=== PATIENT | male | born 1975 | race Two or more races ===

== ENCOUNTER 2018-12-09 22:22 | Emergency (ER) | payer SELFPAY ==
[2018-12-09 22:28] VITALS: O2SAT 97
[2018-12-09] MEDS ORDERED: Lidocaine 2% w Epi 1:100,000 Inj IJ ONE (22:59)
[2018-12-09] MEDS ORDERED: Povidone Iodine Topical 10% Sol ONE (23:01)
[2018-12-09] MEDS ORDERED: Tdap Vaccine 0.5 ml Vial (10-64 yrs) IM ONE (23:28)
--- NOTE | 2018-12-10 | ED PDOC ---
HPI: Psych/Substance Abuse Time Seen by Provider: 12/09/18 22:52 Chief Complaint (Nursing): Abnormal Skin Integrity Chief Complaint (Provider): Alcohol Intoxication and Head Injury ED Caveat: Intoxicated History Per: Patient, EMS History/Exam Limitations: intoxication Onset/Duration Of Symptoms: Unknown Current Symptoms Are (Timing): Still Present Modifying Factor(s): Alcohol Additional Complaint(s): 43 y/o male with no significant PMHx brought in by EMS for evaluation of a head injury and alcohol intoxication. Mechanism at this time is unclear. Patient unable to provide reliable history due to intoxicated state. Patient admits to drinking alcohol today. PMD: Past Medical History Reviewed: Historical Data, Nursing Documentation, Vital Signs Vital Signs: Last Vital Signs Temp 97.3 F L 12/09/18 22:26 Pulse 98 H 12/09/18 22:26 Resp 16 12/09/18 22:26 BP 140/89 12/09/18 22:26 Pulse Ox 97 12/09/18 22:26 - Medical History PMH: No Chronic Diseases - Surgical History Surgical History: No Surg Hx - Family History Family History: States: Unknown Family Hx - Social History Current smoker - smoking cessation education provided: Yes Alcohol: > 2 Drinks/Day Drugs: Denies - Allergies Allergies/Adverse Reactions: Allergies Allergy/AdvReac Type Severity Reaction Status Date / Time No Known Allergies Allergy Verified 12/09/18 22:28 Review of Systems Review Of Systems: ROS cannot be obtained secondary to pt's inabilty to answer questions. Physical Exam - Reviewed Nursing Documentation Reviewed: Yes Vital Signs Reviewed: Yes - Physical Exam Appears: Positive for: In Acute Distress (as well as malodorous and disheveled) Head Exam: Negative for: NORMAL INSPECTION (6 cm vertical laceration at the left forehead extending up into his hairline, gaping at 0.5 cm, constant oozing but stops with pressure, hematoma additionally noted) Skin: Positive for: Warm, Dry Eye Exam: Positive for: EOMI, PERRL, Conjunctival injection ENT: Positive for: Other (tachy mucous membrane) Neck: Positive for: Painless ROM, Supple Cardiovascular/Chest: Positive for: Regular Rate, Rhythm. Negative for: Murmur Respiratory: Positive for: Normal Breath Sounds. Negative for: Respiratory Distress Gastrointestinal/Abdominal: Positive for: Soft. Negative for: Tenderness Back: Positive for: Normal Inspection. Negative for: Decreased ROM Extremity: Positive for: Normal ROM. Negative for: Deformity Lymphatic: Negative for: Adenopathy Neurological/Psych: Positive for: Lethargic, Other (slurred speech, poor concentration, poor thought process, ). Negative for: Motor/Sensory Deficits - ECG O2 Sat by Pulse Oximetry: 97 (RA) Pulse Ox Interpretation: Normal Medical Decision Making Medical Decision Making: Time: 2327 Impression: Head Injury, facial laceration and alcohol intoxication Differentials include but not limited to traumatic brain injury Plan: -- CT Cervical Spine w/o Contrast -- CT Head w/o Contrast -- Adacel (10-64 yrs) 0.5 ml IM -- Glucose, POC -- Laceration Repair. Patient tolerated procedure well. Time: 0000 -- Patient endorsed to Dr. Darnell, pending CT Head, sobriety and final ER disposition. Scribe Attestation: Documented by Joaquin Gibson, acting as a scribe Rios Laura MD. Provider Scribe Attestation: All medical record entries made by the Scribe were at my direction and personally dictated by me. I have reviewed the chart and agree that the record accurately reflects my personal performance of the history, physical exam, medical decision making, and the department course for this patient. I have also personally directed, reviewed, and agree with the discharge instructions and disposition. Procedures - Laceration/Wound Repair Left Upper Face Wound Length (cm): 6 Wound Explored: galeaa intact Irrigated w/ Saline (ccs): 250 Betadine Prep?: Yes Volume Anesthetic (ccs): 12 (2% lidocaine with epinephrine) Wound Repaired With: Sutures Suture Size/Type: 4:0 Number of Sutures: 12 Wound Complexity: Intermediate Disposition - Clinical Impression Clinical Impression: Alcohol abuse, Head injury, Laceration - Patient ED Disposition Is Patient to be Admitted: Transfer of Care Counseled Patient/Family Regarding: Studies Performed, Diagnosis - Disposition Disposition: Transfer of Care Disposition Time: 00:00 Condition: GOOD Additional Instructions: Return for suture renewal in 7 days. RANDI DONOVAN, thank you for letting us take care of you today. Your provider was Mirna Darnell MD and you were treated for ETOH; HEAD INJURY. The emergency medical care you received today was directed at your acute symptoms. If you were prescribed any medication, please fill it and take as directed. It may take several days for your symptoms to resolve. Return to the Emergency Department if your symptoms worsen, do not improve, or if you have any other problems. Please contact your doctor or call one of the physicians/clinics you have been referred to that are listed on the Patient Visit Information form that is included in your discharge packet. Bring any paperwork you were given at discharge with you along with any medications you are taking to your follow up visit. Our treatment cannot replace ongoing medical care by a primary care provider outside of the emergency department. Thank you for allowing the [facility] team to be part of your care today. If you had an X-Ray or CT scan: A Radiologist will review the ED reading if any change in treatment is needed we will contact you. Instructions: Closed Head Injury, Laceration Repair With Stitches (DC), Effects of Alcohol on Your Health Print Language: MOLDOVAN Patient Signed Over To: Mirna Darnell Handoff Comments: pending CT Head, sobriety and final ER dispostion.
--- NOTE | 2018-12-10 00:25 | ED PDOC ---
- ECG O2 Sat by Pulse Oximetry: 97 (RA) Pulse Ox Interpretation: Normal - Progress Re-evaluation Time: 06:50 Condition: Re-examined, Improved Medical Decision Making Medical Decision Making: Time: 0000 -- Patient endorsed to me by Dr. Laura, pending CT head, sobriety and final ER disposition. Time: 1217 CT SCAN OF THE BRAIN WITHOUT IV CONTRAST CLINICAL INDICATION: Trauma, laceration of forehead. TECHNIQUE: Axial and reformatted sagittal and coronal images of the brain obtained without IV contrast administration. Normal size of the ventricles and extra-axial spaces for the patient's age. Normal white matter tracts of the supratentorial brain. Normal basal ganglia and thalami. Normal brainstem. Normal cerebellum. There is no demonstrated extra-axial, intraparenchymal, or intraventricular hemorrhage. There are no findings of an acute ischemic infarction. Normal calvarium. There is no demonstrated fracture. Left frontal subgaleal soft tissue hematoma. Normal visualized paranasal sinuses. IMPRESSION: Normal unenhanced CT scan of the brain. Left frontal subgaleal soft tissue hematoma. Electronically signed on Dec 10, 2018 12:17:27 AM EDT by: Loc Davis M.D., Certified by TERESA BRITTON, Neuroradiology Time: 1229 CT scan of the cervical spine without contrast. Indication: Trauma. Pain. Technique: Axial CT scan images without contrast. Reformatted coronal and sagittal images. Findings: There are diffuse spondylotic changes. Findings are demonstrated by disc space narrowing, osteophyte formation and degenerative endplate changes. Facet joint arthropathy is noted. No fracture or dislocation is seen. No aggressive bone lesion is noted. Moderate multilevel degenerative disc disease more prominent at C4-C5. Impression: Spondylosis. Multilevel facet joint arthropathy. No acute bone pathology. Multilevel degenerative disc disease more prominent at C4-C5. 0700 Patient is alert awake and ambulatory with steady gait. Electronically signed on Dec 10, 2018 12:29:16 AM EDT by: Loc Davis M.D., Certified by TERESA BRITTON, Neuroradiology Scribe Attestation: Documented by Joaquin Gibson, acting as a scribe Sol Darnell MD. Provider Scribe Attestation: All medical record entries made by the Scribe were at my direction and personally dictated by me. I have reviewed the chart and agree that the record accurately reflects my personal performance of the history, physical exam, medical decision making, and the department course for this patient. I have also personally directed, reviewed, and agree with the discharge instructions and disposition. Disposition Doctor Will See Patient In The: Office Counseled Patient/Family Regarding: Studies Performed, Diagnosis, Need For Followup - Clinical Impression Clinical Impression: Alcohol abuse, Head injury, Laceration - POA Present On Arrival: Falls Or Trauma - Disposition Disposition: Routine/Home Disposition Time: 07:00 Condition: GOOD Additional Instructions: Return for suture renewal in 7 days. RANDI DONOVAN, thank you for letting us take care of you today. Your provider was Mirna Darnell MD and you were treated for ETOH; HEAD INJURY. The emergency medical care you received today was directed at your acute symptoms. If you were prescribed any medication, please fill it and take as directed. It may take several days for your symptoms to resolve. Return to the Emergency Department if your symptoms worsen, do not improve, or if you have any other problems. Please contact your doctor or call one of the physicians/clinics you have been referred to that are listed on the Patient Visit Information form that is included in your discharge packet. Bring any paperwork you were given at discharge with you along with any medications you are taking to your follow up visit. Our treatment cannot replace ongoing medical care by a primary care provider outside of the emergency department. Thank you for allowing the [facility] team to be part of your care today. If you had an X-Ray or CT scan: A Radiologist will review the ED reading if any change in treatment is needed we will contact you. Instructions: Closed Head Injury, Laceration Repair With Stitches (DC), Effects of Alcohol on Your Health Print Language: ARABIC
[2018-12-10 06:48] VITALS: BP 130/79; PULSE 81; RESP 18; TEMP 97.6
[2018-12-10] MEDS ORDERED: Tdap Vaccine 0.5 ml Vial (10-64 yrs) IM ONE (06:58)
--- NOTE | 2018-12-10 11:23 | CT ---
Date of service: 12/09/2018 PROCEDURE: CT HEAD WITHOUT CONTRAST. HISTORY: head injury laceration LEFT forehead COMPARISON: None available. TECHNIQUE: Axial computed tomography images were obtained through the head/brain without intravenous contrast. Radiation dose: Total exam DLP = 975.41 mGy-cm. This CT exam was performed using one or more of the following dose reduction techniques: Automated exposure control, adjustment of the mA and/or kV according to patient size, and/or use of iterative reconstruction technique. FINDINGS: HEMORRHAGE: No intracranial hemorrhage. BRAIN: No mass effect or edema. There is mild cerebral cortical atrophy, greater than expected for the patient's stated age. No cortical effacement is seen. VENTRICLES: Unremarkable. No hydrocephalus. CALVARIUM: Unremarkable. PARANASAL SINUSES: Unremarkable as visualized. No significant inflammatory changes. MASTOID AIR CELLS: Unremarkable as visualized. No inflammatory changes. OTHER FINDINGS: None. IMPRESSION: No evidence of intracranial hemorrhage or recent infarct. Left frontal scalp hematoma.
--- NOTE | 2018-12-10 11:25 | CT ---
Date of service: 12/09/2018 PROCEDURE: CT Cervical Spine without contrast HISTORY: intoxicated hea dinjuiry COMPARISON: None available. TECHNIQUE: Axial computed tomography images were obtained of the cervical spine without the use of intravenous contrast. Coronal and sagittal reformatted images were created and reviewed. Radiation dose: Total exam DLP = 334.98 mGy-cm. This CT exam was performed using one or more of the following dose reduction techniques: Automated exposure control, adjustment of the mA and/or kV according to patient size, and/or use of iterative reconstruction technique. FINDINGS: VERTEBRAE: No fracture. Normal alignment. No destructive bony lesion. DISCS/SPINAL CANAL/NEURAL FORAMINA: No evidence of central canal stenosis. Mild bony neural foraminal narrowing is noted in the lower cervical spine region secondary to uncovertebral changes and facet change. There is evidence of degenerative disc disease in the mid cervical spine region with anterior endplate spurring. Small areas of disc bulging are noted. No jumped facets are seen. C1-C2 articulation is within normal limits. Dens is intact. PARASPINAL SOFT TISSUES: Unremarkable. OTHER FINDINGS: None. IMPRESSION: No evidence of fracture or malalignment. Degenerative disc disease. This agrees with preliminary report.
== END 2018-12-10 06:51 | disposition home or self-care (01) ==
LOC: H.ER 22:22
DX: S09.90XA Unspecified injury of head, initial encounter (principal); S01.81XA Laceration without foreign body of other part of head, initial encounter; Z23 Encounter for immunization; F10.129 Alcohol abuse with intoxication, unspecified; S00.03XA Contusion of scalp, initial encounter; F17.200 Nicotine dependence, unspecified, uncomplicated; X58.XXXA Exposure to other specified factors, initial encounter